=== PATIENT | female | born 1995 | race African-American/Black ===

== ENCOUNTER 2017-05-31 22:32 | Emergency (ER) | payer SELFPAY ==
[~2017-05-31] VITALS: Ht 165.1 cm; Wt 50.0 kg
[2017-05-31 22:33] VITALS: BP 129/83; PULSE 72; RESP 16; TEMP 99.2; O2SAT 98
--- NOTE | 2017-05-31 23:07 | PD ---
HPI Chief Complaint: Laceration/Skin Injury Time Seen by Provider: 23:05 Travel History International Travel<30 days: No Contact w/Intl Traveler<30days: No Traveled to known affect area: No History of Present Illness HPI 21-year-old female presents to emergency department for evaluation of a laceration on her chin. Patient states she had a trip and fall and struck her chin on the ground. She states she did not lose consciousness. Denies any facial pain. Is concerned that she may need stitches. She is up-to-date on tetanus vaccination. No other symptoms to report. [facility] Past Medical History Medical History: Denies Significant Hx Diabetes: No Diminished Hearing: No Immunizations Current: Yes Tetanus Vaccination: < 5 Years Influenza Vaccination: Yes ?: Not LMP: 05/23/17 : 0 Past Surgical History Surgical History: No Previous Surgery Social History Alcohol Use: No Tobacco Use: No Substance Use: No Allergies-Medications (Allergen,Severity, Reaction): Coded Allergies: No Known Allergies (Unverified , 05/31/17) Reported Meds & Prescriptions Reported Meds & Active Scripts Active No Active Prescriptions or Reported Medications Review of Systems Except as stated in HPI: all other systems reviewed are Neg Physical Exam Narrative GENERAL: Well-nourished, well-developed female patient no acute distress SKIN: Focused skin assessment warm/dry. 1-1/2 cm laceration of the left inferior chin. Well approximated. No active bleeding. HEAD: Normocephalic. Tenderness elicited to palpation over the facial structures. EYES: No scleral icterus. No injection or drainage. NECK: Supple, trachea midline. No JVD or lymphadenopathy. DENTAL: No loose or chipped teeth. No malocclusion. CARDIOVASCULAR: Regular rate and rhythm without murmurs, gallops, or rubs. RESPIRATORY: Breath sounds equal bilaterally. No accessory muscle use. Data Data Last Documented VS Vital Signs Date Time Temp Pulse Resp B/P Pulse Ox O2 Delivery O2 Flow Rate FiO2 05/31/17 22:33 99.2 72 16 129/83 98 Room Air MDM Medical Decision Making Medical Screen Exam Complete: Yes Emergency Medical Condition: Yes Medical Record Reviewed: Yes Differential Diagnosis Laceration versus abrasion versus avulsion Narrative Course 21-year-old female presents for [facility] for evaluation of a laceration to her chin. Wound is cleansed and approximated using Dermabond and Steri-Strips. Patient was very grateful for this. She is counseled on care and agrees to return immediately with any acute worsening of symptoms. Procedures Procedure Narrative LACERATION LOCATION: Inferior chin LENGTH: 1.5 centimeters NUMBER OF STITCHES/EDILBERTO: Steri-Strips and Dermabond REPAIR: The area of the laceration was prepped with Betadine and sterilely draped. The wound was copiously irrigated and explored without evidence of foreign body, tendon injury or neurovascular injury. The wound was closed using Steri-Strips and Dermabond. This was a single layer repair. A sterile dressing was applied. The patient was advised to keep the dressing clean and dry. Patient tolerated the procedure well. Diagnosis Primary Impression: Laceration of chin without complication Qualified Code: S01.81XA - Laceration of chin without complication, initial encounter Referrals: Primary Care Physician Patient Instructions: General Instructions, Skin Adhesive Care (ED) Additional Instructions: Keep the area dry for the next 24 hours Do not scrub the area You may wash her face after that. Do not apply ointment the area Follow-up with primary care provider If Steri-Strips are in place in 7 days, gently remove using alcohol wipes Return immediately to the emergency department with any acute worsening of symptoms Med/Other Pt SpecificInfo: No Change to Meds Scripts No Active Prescriptions or Reported Meds Disposition: 01 DISCHARGE HOME Condition: Stable TaliElodiaBrisusan PEREZ May 31, 2017 23:06
== END 2017-05-31 23:42 | disposition home or self-care (01) ==
LOC: NEPD 22:32
DX: S01.81XA Laceration without foreign body of other part of head, initial encounter (principal); W01.0XXA Fall on same level from slipping, tripping and stumbling without subsequent striking against object, initial encounter
CPT/HCPCS: 12011